=== PATIENT | female | born 1990 | race African-American/Black ===

== ENCOUNTER 2020-01-11 12:06 | Emergency (ER) | payer MEDICAID ==
[~2020-01-11] VITALS: Ht 166.4 cm; Wt 87.7 kg
[2020-01-11 13:15] VITALS: BP 132/71
[2020-01-11] MEDS ORDERED: LIDOCAINE 5% TRANSDERMAL PATCH TD ONE (13:30)
[2020-01-11] MEDS ORDERED: KETOROLAC TROMETHAMINE 30 MG/ML VIAL IM ONE (13:30)
[2020-01-11] MEDS ORDERED: METHOCARBAMOL 500 MG TABLET PO ONE (13:30)
== END 2020-01-11 14:36 | disposition home or self-care (01) ==
LOC: EMS 12:09
DX: S16.1XXA Strain of muscle, fascia and tendon at neck level, initial encounter (principal); S39.012A Strain of muscle, fascia and tendon of lower back, initial encounter; F17.210 Nicotine dependence, cigarettes, uncomplicated; F12.90 Cannabis use, unspecified, uncomplicated; Z88.0 Allergy status to penicillin; V43.62XA Car passenger injured in collision with other type car in traffic accident, initial encounter; Y93.89 Activity, other specified; Y92.89 Other specified places as the place of occurrence of the external cause; Y99.8 Other external cause status
CPT/HCPCS: 96372; 99283; J1885